=== PATIENT | male | born 1955 | race Caucasian/White ===

== ENCOUNTER 2023-07-14 04:26 | Emergency (ER) | payer OTHER, MEDICARE ==
[~2023-07-14] VITALS: Ht 167.6 cm; Wt 73.0 kg
[2023-07-14 04:53] VITALS: O2SAT 97
[2023-07-14 06:49] LABS: HEMATOCRIT. 41.7 % (42.0-52.0); HEMOGLOBIN. 14.4 g/dL (14.0-18.0); MEAN CORPUSCULAR HEMOGLOBIN 32.9 pg (28.0-32.0); MEAN CORPUSCULAR HGB CONC 34.6 g/dL (31.0-37.0); MEAN CORPUSCULAR VOLUME 95.2 fL (80.0-94.0); MEAN PLATELET VOLUME 8.3 fl (7.4-10.4); PLATELET 246 x1000/uL (130-400); RED BLOOD CELL COUNT 4.38 mill/uL (4.7-6.1); RED CELL DISTRIBUTION WIDTH 13.2 % (11.6-14.6); WHITE BLOOD COUNT 9.7 x1000/uL (4.5-11.0)
[2023-07-14 06:56] LABS: DIFFERENTIAL COMMENT 1
[2023-07-14 07:06] LABS: CLARITY URINE CLEAR (CLEAR); COLOR URINE YELLOW (YELLOW); GLUCOSE URINE NEGATIVE (NEGATIVE); KETONES URINE NEGATIVE (NEGATIVE); LEUKOCYTE ESTERASE URINE NEGATIVE (NEGATIVE); NITRITE URINE NEGATIVE (NEGATIVE); OCCULT BLOOD URINE NEGATIVE (NEGATIVE); PROTEIN URINE NEGATIVE (NEGATIVE); SPECIFIC GRAVITY URINE 1.007 (1.005-1.030); UROBILINOGEN URINE 0.2 E.U./dL (0.2-1.0)
[2023-07-14 07:09] LABS: ALANINE AMINOTRANSFERASE 31 IU/L (10-49); ALBUMIN 3.9 g/dL (3.2-4.8); ASPARTATE AMINOTRANSFERASE 30 IU/L (<34); BILIRUBIN TOTAL 0.4 mg/dL (0.1-1.0); CALCIUM 8.9 mg/dL (8.7-10.4); CARBON DIOXIDE 25 mEq/L (21-32); CHLORIDE 99 mEq/L (98-107); CREATININE 0.8 mg/dL (0.6-1.3); GLUCOSE 121 mg/dL (70-105); POTASSIUM 4.4 mEq/L (3.5-5.1); PROTEIN TOTAL 6.2 g/dL (6.0-8.3); SODIUM 131 mEq/L (136-145); TROPONIN I HIGH SENSITIVITY 4 ng/L (3.0-53); UREA NITROGEN BLOOD 14 mg/dL (9-23)
[2023-07-14 08:11] VITALS: BP 108/78; PULSE 78; RESP 18; TEMP 98.7
[2023-07-14 12:06] LABS: PLATELET ESTIMATE NORMAL
== END 2023-07-14 09:51 | disposition home or self-care (01) ==
LOC: ER 04:26
DX: B34.9 Viral infection, unspecified (principal); F32.A Depression, unspecified; E78.00 Pure hypercholesterolemia, unspecified; I10 Essential (primary) hypertension; Z20.822 Contact with and (suspected) exposure to COVID-19
CPT/HCPCS: 99285; 71045; 87426; 80053; 81003; 83880; 85025; 84484; 87804 ×2; 36415; 93005; C9803